=== PATIENT | male | born 1985 | race African-American/Black ===

== ENCOUNTER 2021-06-24 14:08 | Emergency (ER) | payer MEDICARE, SELFPAY ==
[2021-06-24 14:10] VITALS: BP 103/72; PULSE 84; RESP 16; TEMP 37.1; O2SAT 99; BMI 19.6
--- NOTE | 2021-06-24 15:48 | EDS_ITS ---
HPI HPI - URI History of Present Illness Chief Complaint: Cough Informant: patient Onset/Context/Timing Onset: Days Context: Gradual Onset Timing: Continuous Current Severity: Mild Maximum Severity: Mild Associated Symptoms Associated Symptoms: Positive for Myalgias and Nonproductive cough; Negative for Nasal Congestion, Headache, Sinus Pressure, Nausea, Vomiting, Diarrhea, Shortness of Breath, Chest Pain, Hemoptysis and Productive Cough Narrative Narrative: 35-year-old male no sniffing past medical history. States he had a cough since 1123 so is a 6 of his symptoms. States is nonproductive he denies any fever but he has had chills. He is unvaccinated for Covid. He denies shortness of breath. He denies vomiting or diarrhea Prior similar symptoms: Yes Recent Illness/Hospitalization: No ROS ROS ED ROS Narrative Cough. Chills. Review of Systems ROS Unobtainable: Denies due to encephalopathy Constitutional Constitutional ED: Reports chills; Denies fever(s) Eyes Eyes: Denies change in vision ENT ENT ED: Denies ear pain or sore throat Cardiovascular Cardiovascular: Denies chest pain Respiratory/Chest Respiratory/Chest: Reports cough; Denies dyspnea or sputum Gastrointestinal Gastrointestinal: Denies abdominal pain, diarrhea, nausea or vomiting Genitourinary Genitourinary ED: Denies dysuria Musculoskeletal Musculoskeletal: Reports myalgias Integumentary Denies rash Neurologic Neurologic: Denies headache(s) Psychiatric Psychiatric: Denies depression Endocrine Endocrinology: Denies polyuria Hematologic/Lymphatic Hematologic/Lymphatic: Denies easy bruising Allergic/Immunologic Allergic/Immunologic ED: Denies urticaria PFSH PFSH Medical History no medical history Home Medications dexamethasone [Decadron] 6 mg PO DAILY #7 tab 06/24/21 [Rx Last Taken Unknown] Allergy/AdvReac Type Severity Reaction Status Date / Time No Known Allergies Allergy Verified 06/24/21 14:12 Social History Smoking Status: Unknown if ever smoked EXAM Physical Exam Narrative Exam Narrative: Male sitting in hallway chair no acute distress vital signs stable afebrile. Pulse ox 99% on room air no hypoxia. HEENT exam unremarkable. Moist remembers. Neck nontender no lymphadenopathy. Lungs clear to auscultation bilaterally. Heart regular rhythm rate about 84 no murmur. Chest wall nontender. Abdomen soft nontender. Moving all 4 extremities. Calves are nontender without edema. Neurologically is awake and alert with no focal motor deficits. Const Vital Signs: 06/24/21 14:10 06/24/21 15:38 Temperature 98.8 F Temperature Source Temporal Pulse Rate 84 Respiratory Rate 16 Respiratory Effort Normal Non-Labored Blood Pressure 103/72 Blood Pressure Mean 82 Pulse Ox 99 Oxygen Delivery Method Room Air Positive well nourished and well developed; Negative for obese, cachectic or contractures General Appearance ED: well developed and NAD; Negative for cachectic, contractures, cyanotic, diaphoretic or pallor Nutritional Appearance: Negative for cachectic or obese HEENT Reports moist mucous membranes; Denies dry mucous membranes normocephalic; Negative for atraumatic or scalp tenderness Face and Sinus: Negative for sinus tenderness, maxillary instability or facial tenderness External Ear: external ears normal Mouth ED: No dry mucous membranes Mouth: No dry mucous membranes Throat: posterior oropharynx normal Eyes PERRL and EOMs intact bilaterally General Eye ED: Negative for pale conjunctiva or scleral icterus Neck no lymphadenopathy, supple, no meningeal signs and no JVD General: Negative for anterior neck swelling or lymphadenopathy Resp normal respiratory effort and clear to auscultation bilaterally Auscultation: Negative for rales, rhonchi or wheezes Cardio S1 normal heart sound, S2 normal heart sound and no murmurs Rate: regular rate Rhythm: regular rhythm GI non-tender, non-distended and no masses Inspection: Negative for abdominal distention Auscultation: normoactive bowel sounds; Negative for hyperactive bowel sounds or hypoactive bowel sounds Palpation: soft; Negative for tender or guarding Back/Spine no CVA tenderness and normal ROM General Back: Negative for CVA tenderness Cervical Spine: Negative for cervical spine tenderness Extremity normal to inspection and full ROM General Extremety ED: Negative for cyanosis or tenderness General Extremity: Negative for cyanosis Neuro oriented x3 Sensorium / Orientation: alert, oriented to person, oriented to place and oriented to time Motor Exam: strength 5/5 throughout Psych mental status grossly normal Mood & Affect: Negative for depressed or tearful Skin General Skin Exam: Negative for jaundice or pallor Lesions: no lesions Rashes: no rashes MDM MDM MDM Narrative Medical decision making narrative: 35-year-old male with URI symptoms for 6 days. Obtain a chest x-ray and a Covid test. Repeat exam no change at 4:35 PM. Patient is Covid positive. To be discharged home on Decadron daily. Quarantine for 10 days on the onset of symptoms. Follow- up if not improving or return if worse. Lab Data Attestation: I reviewed the patient's lab results. Lab results narrative: Rapid Covid antigen test is positive. Radiography Diagnostic Testing: Clinical Impression(s) from Imaging Studies Chest X-Ray 06/24/21 16:08 IMPRESSION: No radiographic evidence of acute cardiopulmonary disease. at 1620 Reported and signed by: Moises Key MD Electronically Signed: Moises Key MD at 16:19 EST Tel , Service support , Chest x-ray, portable, single view interpreted by myself shows no acute abnorma lity. Normal cardiac silhouette mediastinum. No infiltrates. Discharge Plan Triage Chief Complaint: Cough ED Provider: Luis Poon Dx/Rx/DC Orders Clinical Impression: COVID-19 Instructions: Human Coronaviruses Prescriptions: New dexamethasone [Decadron] 6 mg tablet 6 mg PO DAILY Qty: 7 RF: 0 Primary Care Provider: Care Physician,No Primary Referrals: Ulises Baez MD [STAFF PHYSICIAN] - 1 Week if not improving Care Physician,No Primary [Primary Care Provider] - Activity Restrictions/Additional Instructions: Plenty of fluids and rest. Tylenol and Motrin for fever and body aches. Follow-up with primary care physician if not proving. Return emergency department if you are feeling a lot worse. Quarantine for 10 days from the onset of your symptoms. Disposition Disposition: Home, Self Care
--- NOTE | 2021-06-24 16:08 | RAD_ITS ---
EXAM: XR CHEST, 1 VIEW : 1985 CLINICAL INDICATION: cough TECHNIQUE: Frontal view of the chest. This report was created using [employer] report generation technology. COMPARISON: None. FINDINGS: LUNGS AND PLEURAL SPACES: Unremarkable. No consolidation or edema. No pneumothorax. No effusion. HEART: Unremarkable. Cardiac silhouette not enlarged. MEDIASTINUM: Central airways and mediastinal contour are unremarkable. BONES/JOINTS: Unremarkable. SOFT TISSUES: Unremarkable. RAD/Chest 1 View (Portable) IMPRESSION: No radiographic evidence of acute cardiopulmonary disease. at 1620 Reported and signed by: Moises Key MD Electronically Signed: Moises Key MD at 16:19 EST Tel , Service support ,
[2021-06-24 16:58] VITALS: RESP 18
[2021-06-24 17:02] VITALS: PULSE 71; RESP 16; O2SAT 97
== END 2021-06-24 17:06 | disposition home or self-care (01) ==
PROVIDERS: Emergency Provider Emergency Medicine
DX: U07.1 COVID-19 (principal)
CPT/HCPCS: 71045; 87426; 99282

== ENCOUNTER 2022-09-16 10:10 | Day surgery (SDC) | payer BC, SELFPAY ==
[2022-09-16] VITALS (10 sets, daily range): BP systolic 98–123; BP diastolic 58–80; PULSE 62–82; RESP 14–18; TEMP 36.1–36.6; O2SAT 99–100; BMI 19.4
[2022-09-16] MEDS: Lactated Ringers 1,000 ML 15 ML IV (10:54)
--- NOTE | 2022-09-16 11:53 | HP.PCM_ITS ---
History and Physical Date of Admission: 09/16/22 Date of Service:? 09/11/22 MR#: [id number] Acct: [id number] Name:JOLYNN BURDICK Rep #: [id number] : 1985 ? ? Provider: Dr. Ronnie Dos Santos MD Age/Sex:? 37/M ? ? Location: [facility] Status: Signed Intake Vital Signs ? 06/24/2114:10 09/11/2309:12 Height 6 ft 6 ft Weight: ? 145 lb 8 oz BMI ? 19.7 BP ? 117/76 Blood Pressure Location ? Rt brachial Position ? Sitting Respiration ? 18 Pulse ? 75 Pulse Source ? Monitor Pulse Oximetry (%) ? 100 Oxygen Delivery Method ? room air Intake Visit Reasons:?Hernia Chief Complaint: hernia Director Telecommunications Required: No Is patient in pain?: No Allergies No Known Allergies Allergy (Verified 09/12/22 10:13) Medications NK? 09/11/22 [History Confirmed 09/12/22] PFSH Medical History Alcohol use Inguinal hernia of left side without obstruction or gangrene Marijuana use Smoker Surgical History?(Updated 09/12/22 @ 10:19 by Ines Galeas) History of hernia repair Social History?(Updated 09/11/22 @ 10:12 by Angelica Lozano) Smoking Status:? Current some day smoker tobacco type: cigarettes and cigars alcohol intake:? current alcohol intake frequency: holidays/special occasions only substance use type:? does not use HPI HPI HPI: Patient is a 37-year-old male who presents for evaluation of a left groin hernia.? He states he is unsure of when he got his hernia.? He estimates that has been present for greater than 1 year.? He works for a local [employer]?and gets regular ODOT physicals as part of his ongoing employment.? He states that his last physical was April 2022 at which time he was told he had a left groin hernia.? He states that this was the first he heard of this issue in a formal physical and does not believe he had a hernia at his previous physical.? Because of this finding, his employer has asked him to take a leave of absence and stipulated that as a condition of his ongoing employment he must have this hernia fixed. Mr. Chawla confirms that he experiences some bulging of his left groin, but has minimal discomfort.? He reports that prior to his leave of absence he had been without tobacco for at least 8 months, however, now that he has been on leave and become bored.? He has picked up a cigar smoking habit.? He states that he is smoking some 2 cigars a week.? He denies any history of cutaneous infections?specifically MRSA.? He has no past medical history. Patient does have a history of right-sided hernia repair via an open approach at the age of 12. ROS General General: No weight change, appetite, fatigue, colon cancer, breast cancer or weakness HEENT HEENT: No difficulty swallowing, eye injury, eye surgery, swollen glands or hoarseness Endo Endocrine: No thyroid disease, diabetes mellitus, thyroid cancer, Hair loss, heat intolerance or cold intolerance Skin Skin: No rash or changing moles Breast Breast: No left breast lump, right breast lump, nipple discharge, breast pain, abnormal mammogram, abnormal US or breast enlargement Musc Musculoskeletal: No back problems, arthritis, rheumatoid arthritis, gout or joint pain Cardio Cardiovascular: No murmur, pacemaker, heart disease, atrial fibrillation, high blood pressure, heart attack, heart stent, palpitations, shortness of breat with exertion or chest pain Psych Psychiatric: No depression, anxiety or hearing voices Resp Respiratory: No shortness of breath, No sleep apnea, No cough, No COPD, No asthma, No emphysema and No wheezing Gastro Gastrointestinal: No abdominal pain, No nausea or vomiting, No diarrhea, No constipation, No blood in stool, No acid reflux, No hemorrhoids, No ulcers, No gallbladder problem and No black,tarry stools Francois Hematologic: No blood thinners, No blood disorders, No bleeding, No anemia and No blood clots Neuro Neurologic: No system reviewed and no additional complaints, except as documented, No as per HPI, No abnormal gait, No abnormal hearing, No abnormal movements, No abnormal speech, No behavioral changes, No burning sensations, No confusion, No convulsions, No disequilibrium, No dizziness, No localized weakness, No frequent falls, No headache(s), No lack of coordination, No loss of vision, No memory loss, No numbness, No other visual disturbances, No radicular pain, No restless legs, No sensory deficit, No syncope, No tingling, No tremor(s), No weakness and No other Exam Const General: cooperative, healthy appearing, comfortable and no acute distress Orientation: alert, awake and oriented x3 Resp Effort & Inspection: normal respiratory effort GI Other: Slender, nondistended, no scars.? Soft and nontender to palpation. Other: Visible bulging in the left groin.? Bilaterally descended testicles.? I believe I feel a direct defect on the left.? I do not feel a hernia defect on the right. Assessment and Plan Assessment and Plan (1) Inguinal hernia of left side without obstruction or gangrene: ?Status:?Chronic ?Comment: This is a 37-year-old male who presents for his first consultation visit regarding a complaint of left inguinal hernia that was first found during his employment physical April 2022.? I confirmed this finding with my own exam.? Patient believes this pathology may have predated the most recent physical, but assures me his physical before fall 2021 was unremarkable.? He does not appear to be in any discomfort, but has a condition of his ongoing employment with the [employer] for which he works, he is required to have this issue fixed.? Given that he plans to go back to heavy lifting/exertional activity, I have recommended robot-assisted left inguinal hernia repair with mesh.? This would give me the opportunity to place the largest mesh possible to mitigate Mr. Chawla's risk for recurrence.? To this end, I have asked him to stop his tobacco habit immediately, informed him that we would be testing him via MRSA PCR for MRSA colonization, and also stipulated that he will require 5 weeks of no lifting greater than 10 pounds postoperatively to allow for healing.? He accepts all these terms and wishes to proceed as soon as possible. ?Plan: ? Robot-assisted left inguinal hernia repair with mesh at first mutually available operative date.? Patient to complete preoperative MRSA PCR I have examined the patient and the H&P has been reviewed. There are no clinical changes since date of exam. I confirm the expectations for the procedure as well as postoperative lifting expectations. Patient and his significant other had several questions regarding postoperative activity, once these were answered they expressed satisfaction and readiness to proceed. Therefore we will proceed to the operating room for robot-assisted left (possible bilateral) inguinal hernia repair with mesh.
[2022-09-16] MEDS: Cefazolin 2 GM in 0.9% Normal Saline 100 ML IV (12:10)
[2022-09-16] MEDS: Bupiv/Epi 0.25% 30 ML Vial (12:35)
--- NOTE | 2022-09-16 14:47 | PCM.OPRPT ---
Report of Operation Date of Procedure: 09/16/22 Pre-Operative Diagnosis: Left inguinal hernia Post-Operative Diagnosis: Left indirect inguinal hernia Surgery/Procedure Performed:: Robot-assisted left inguinal hernia repair with mesh Description of Surgical Findings:: ? Moderate sized indirect inguinal hernia defect ? Diminutive cord lipoma Surgeon: Ronnie Dos Santos river driver: Renu Donahue Type of Anesthesia: General/Supplemental Anesthesiologist: Denzel Raza Specimen's removed: None Drains: None Estimated Blood Loss (mL): 10 Description of Procedure: After appropriate identification the preoperative holding area the patient was brought to the operating room where he was positioned supine on the operating table. Preoperative antibiotics were completed and the patient was administered a general anesthetic. Patient's abdomen was then prepped and draped in usual sterile fashion. Formal timeout followed to confirm patient and procedure. Procedure was begun with an optical entry facilitated by Veress insufflation at Morton's point. Once pneumoperitoneum reached a set point pressure of 12 mmHg the Veress needle was removed and a 8 mm robotic trocar was placed with a careful Optiview technique. Follow-up laparoscopic investigation revealed no inadvertent injury to the viscera below. A second port was placed a hand's breath right of this index port under laparoscopic visualization along the midline. Then a third robotic port was placed in the right upper quadrant a handsbreadth from the midline port just placed. Patient was positioned in slight Trendelenburg and I performed a local block of the ilioinguinal nerve using 9mL local anesthetic under laparoscopic visualization. The robot was docked in standard fashion. With this positioning I clearly observed a moderately large left indirect inguinal hernia defect. Robotically a peritoneal flap was created on the left extending from the medial umbilical fold to the vicinity of the ASIS (externally) and was bluntly dissected to expose the medial parietal compartment and lateral visceral compartments. Medially I could visualize the pubic tubercle and Michael's ligament while laterally I extended the dissection down to the level of the ASIS directly against the peritoneum. The hernia sac was identified and from the cord structures deeply with selective use of monopolar energy. This proved more difficult than usual given the scarred in state of the hernia sac and deep adherence to the surrounding soft tissue. In the end I was able to visualize the inverted V of the spermatic vessels and the vas deferens medially. A small cord lipoma was identified and removed with monopolar energy. Beyond this, I confirmed that there is no evidence of either a direct inguinal hernia or femoral hernia. The peritoneal flap was inspected to ensure that cord was appropriately parietalized and there was no pulling of the cord structures or the viscera deeply over the psoas using the pull test. Once satisfied, a left-sided Bard 3D max, size large, mid weight mesh was placed into the abdomen along with suture. It was positioned within the preperitoneal pocket so that there was good medial and inferior overlap. It was then tacked to the abdominal wall at the adminiculum and laterally in a partial-thickness bite of the abdominal wall using a 3-0 Vicryl suture. The peritoneal flap was then closed with a running 3-0 V-Loc suture taking care to conceal the barbs of the suture beneath the peritoneum. After completing this closure, I hung the hernia sac vertically in front of a gap in the peritoneal closure where there was an exposed inocencio from the suture. With the peritoneal flap closed, sutures were systematically removed from the peritoneum and the pneumoperitoneum was evacuated before removing the trocars. Case counts were confirmed as correct. The port sites were closed at the skin with running 4-0 Monocryl in a subcuticular fashion. Steri-Strips and OpSite's were used as dressings. Patient's testicles were verified within the scrotum, then patient was then awoken from anesthetic and transferred to PACU for ongoing recovery. Grafts/Implants Used: Bard 3D max mid anatomical mesh size large lot: [id number] ref: [id number] Complications None Admit VTE Documentation VTE Present on Admission: Yes VTE Mechan Device Prophylaxis: SCD's Procedures Digestive 40xxx-49xxx: 26959 Lap ing hernia repair init
--- NOTE | 2022-09-16 16:15 | DCINST_ITS ---
Discharge Instructions Diet Discharge Diet: No restrictions Activity Discharge Activity: May Not Drive (While taking narcotic pain medication) and May Shower May shower in (days): 2 Ice area for (Minutes): 20 Lifting Restrictions: No lifting greater than 10 pounds for the next 5 weeks Dressing / Incision Call your doctor if your incision/area has: Continuous Slow Oozing, Increased Pain/ Swelling, Increased Redness, Foul Smelling Discharge and Swelling at the incision site Call your doctor if you observe: Fever of 101 or Higher Change Dressing in: 2 days (Please leave Steri-Strips intact until they fall off spontaneously or are taken off at your follow-up visit) Remove Dressing in: 2 days Cleanse incision/area with: Soap & Water and Keep Dressing Clean & Dry Follow Up Care Please Follow Up With: Ronnie Dos Santos MD When: 1 week postop Test Results: Test results from this visit will be discussed in further detail at your follow- up appointment, if applicable. Discharge Plan Admission Primary Reason for Your Visit: Left inguinal hernia repair Attending Provider: Ronnie Dos Santos Primary Care Provider: Care PhysicianIsaura Primary Instructions Patient Instructions: Laparoscopic Hernia Repair Discharge Orders/Prescriptions Prescriptions: New oxycodone 5 mg tablet 5 mg PO Q6H PRN (Reason: pain) 3 Days Qty: 10 0RF Referrals / Follow Up: Care PhysicianIsaura Primary [Primary Care Provider] - Disposition Disposition (needs filled in before D/C Order can be placed): Home, Self Care
[2022-09-16] MEDS: oxyCODONE 5 MG Tablet PO (17:30)
== END 2022-09-16 19:23 | disposition home or self-care (01) ==
LOC: SDC 10:12 → AC 10:15
PROVIDERS: Referring Provider Surgery; Visit Provider Surgery
PROC: 0YQ64ZZ Repair Left Inguinal Region, Percutaneous Endoscopic Approach (ICD-10-PCS; CPT 49650; principal; 2022-09-16 11:10)
DX: K40.90 Unilateral inguinal hernia, without obstruction or gangrene, not specified as recurrent (principal); D17.6 Benign lipomatous neoplasm of spermatic cord; F17.210 Nicotine dependence, cigarettes, uncomplicated; F12.90 Cannabis use, unspecified, uncomplicated
CPT/HCPCS: 49650; S2900; 55520; 00840; 87081; J7120; J2405